=== PATIENT | female | born 1955 | race Caucasian/White ===

== ENCOUNTER 2021-05-27 12:23 | Outpatient (CLI) | payer OTHER, SELFPAY ==
[2021-05-27 14:02] LABS: Free T4 Free Thyroxine 0.95 ng/mL (0.78-2.19)
[2021-05-30 05:17] LABS: Triiodothyronine T3 Free 2.8 pg/mL (2.3-4.2)
== END 2021-05-27 12:24 | disposition home or self-care (01) ==
LOC: ANHWCLAB 12:26
PROVIDERS: Visit Provider Internal Medicine Endocrinology, Diabetes & Metabolism
DX: E04.9 Nontoxic goiter, unspecified (principal); E03.9 Hypothyroidism, unspecified
CPT/HCPCS: 36415; 84439; 84443; 84481

== ENCOUNTER 2022-04-07 10:46 | Outpatient (CLI) | payer OTHER, SELFPAY ==
[2022-04-07 13:53] LABS: Free T4 Free Thyroxine 1.44 ng/mL (0.78-2.19); Vitamin D 25 Hydroxy 27.1 ng/mL
[2022-04-07 19:31] LABS: Total Triiodothyronine (T3) 1.12 NG/ML (0.97-1.69)
== END 2022-04-07 10:47 | disposition home or self-care (01) ==
LOC: ANHWCLAB 10:48
PROVIDERS: PCP Internal Medicine; Visit Provider Nurse Practitioner Family
DX: M81.0 Age-related osteoporosis without current pathological fracture (principal); E03.9 Hypothyroidism, unspecified
CPT/HCPCS: 36415; 82306; 84439; 84443; 84480